=== PATIENT | male | born 1945 | race Caucasian/White ===

== ENCOUNTER 2017-02-20 08:38 | Emergency (ER) | payer MEDICARE ==
--- NOTE | 2017-02-20 09:17 | ED ---
General Adult HPI - General Chief complaint: Recheck/Abnormal Lab/Rx Stated complaint: Chest Pain Time Seen by Provider: 02/20/17 08:50 Source: patient, family, RN notes reviewed Mode of arrival: ambulatory Limitations: no limitations - History of Present Illness Initial comments: This is a 82-year-old male with a history of A. fib status post ablation who states he's been off her Rythmol since February 16 of this year who states he woke up feeling cold with an irregular heartbeat. He is also some shortness of breath shaking some lightheadedness. He also has been having urinary frequency though he has recently been placed on Flomax. He also states he was diagnosed with been diabetic about a month ago and is on new medications for this. He denies any overt chest pain no increased lower extremity edema. - Related Data Home Medications Medication Instructions Recorded Confirmed Allopurinol [Zyloprim] 300 mg PO DAILY 08/09/15 02/20/17 Colchicine 0.6 mg PO BID PRN 08/09/15 02/20/17 Propafenone [Rythmol] 225 mg PO TID 08/09/15 02/20/17 Atorvastatin Calcium [Lipitor] 10 mg PO DAILY 02/20/17 02/20/17 Losartan [Cozaar] 50 mg PO DAILY 02/20/17 02/20/17 Sulfamethox-Tmp 800-160Mg [Bactrim 1 tab PO Q12H 02/20/17 02/20/17 DS 800-160 mg] Tamsulosin [Flomax] 0.4 mg PO PC-SUPPER 02/20/17 02/20/17 Warfarin [Coumadin] 2.5 mg PO SUMOTUTHFRSA 02/20/17 02/20/17 Warfarin [Coumadin] 5 mg PO WE 02/20/17 02/20/17 metFORMIN HCL 1,000 mg PO AC-BID 02/20/17 02/20/17 Previous Rx's Medication Instructions Recorded Magnesium 200 mg PO DAILY #14 tablet 02/20/17 Allergies Allergy/AdvReac Type Severity Reaction Status Date / Time quinidine Allergy Anaphylaxis Verified 02/20/17 09:59 Review of Systems ROS Statement: Those systems with pertinent positive or pertinent negative responses have been documented in the HPI. ROS Other: All systems not noted in ROS Statement are negative. Past Medical History Past Medical History: Atrial Fibrillation, CVA/TIA, Hyperlipidemia, Hypertension , Sleep Apnea/CPAP/BIPAP Additional Past Medical History / Comment(s): SKIN LESION ON RT CHEST, GOUT History of Any Multi-Drug Resistant Organisms: None Reported Past Surgical History: Ablation, Cardiac Ablation, Orthopedic Surgery, Tonsillectomy Additional Past Surgical History / Comment(s): FOOT SX, EPIDURAL FOR PAIN, CARDIAC ABLATION 1997ISH Past Anesthesia/Blood Transfusion Reactions: No Reported Reaction Past Psychological History: No Psychological Hx Reported Smoking Status: Former smoker Past Alcohol Use History: None Reported Past Drug Use History: None Reported General Exam - General Exam Comments Initial Comments: This is a well-developed well-nourished awake alert oriented 3 male Limitations: no limitations General appearance: alert, in no apparent distress Head exam: Present: atraumatic, normocephalic, normal inspection Eye exam: Present: normal appearance, PERRL, EOMI. Absent: scleral icterus, conjunctival injection, periorbital swelling ENT exam: Present: normal exam, mucous membranes moist Neck exam: Present: normal inspection. Absent: tenderness, meningismus, lymphadenopathy Respiratory exam: Present: normal lung sounds bilaterally. Absent: respiratory distress, wheezes, rales, rhonchi, stridor Cardiovascular Exam: Present: tachycardia, irregular rhythm. Absent: systolic murmur, diastolic murmur, rubs, gallop, clicks GI/Abdominal exam: Present: soft, normal bowel sounds. Absent: distended, tenderness, guarding, rebound, rigid Extremities exam: Present: normal inspection, full ROM, normal capillary refill , pedal edema, other (Trace edema with stasis dermatitis bilaterally.). Absent : tenderness, joint swelling, calf tenderness Back exam: Present: normal inspection Neurological exam: Present: alert, oriented X3, CN II-XII intact Psychiatric exam: Present: normal affect, normal mood Skin exam: Present: warm, dry, intact, normal color. Absent: rash Course Vital Signs 02/20/17 02/20/17 02/20/17 08:40 09:04 10:11 Temperature 98.8 F 97.3 F L 97.8 F Pulse Rate 107 H 115 H 112 H Respiratory 18 16 16 Rate Blood Pressure 120/78 135/106 135/106 O2 Sat by Pulse 98 97 96 Oximetry 02/20/17 02/20/17 10:56 11:46 Temperature Pulse Rate 78 85 Respiratory 18 16 Rate Blood Pressure 135/106 127/60 O2 Sat by Pulse 97 98 Oximetry - Reevaluation(s) Reevaluation #1: 02/20/17 12:40 The patient is spontaneously convert to normal sinus rhythm the rate was 65 ME 180 QRS 88 QT/QTC 366/3 left exodeviation no acute ST-T wave changes. Reevaluation #2: 02/20/17 12:41 The patient continues to be in normal sinus rhythm he will be discharged after the IV magnesium. Reevaluation #3: 02/20/17 12:42 I did review the lab work. The INR was 1.8. EKG Findings - EKG Results: EKG: interpreted by [facility] Medical Decision Making - Medical Decision Making I did a long discussion with patient has regarding the findings patient did convert to normal sinus rhythm his magnesium was 1.6 he did get supplementation the patient will be placed on any symptoms supplementation he is also to increase his Coumadin as directed he is to keep his follow-up with cardiology and return when necessary - Lab Data Result diagrams: 02/20/17 09:24 02/20/17 09:24 Lab Results 02/20/17 02/20/17 02/20/17 Range/Units 09:24 09:24 09:24 WBC 5.5 (3.8-10.6) k/uL RBC 4.65 (4.30-5.90) m/uL Hgb 15.0 (13.0-17.5) gm/dL Hct 42.9 (39.0-53.0) % MCV 92.2 (80.0-100.0) fL MCH 32.2 (25.0-35.0) pg MCHC 34.9 (31.0-37.0) g/dL RDW 14.2 (11.5-15.5) % Plt Count 127 L (150-450) k/uL Neutrophils % 69 % Lymphocytes % 20 % Monocytes % 7 % Eosinophils % 2 % Basophils % 0 % Neutrophils # 3.8 (1.3-7.7) k/uL Lymphocytes # 1.1 (1.0-4.8) k/uL Monocytes # 0.4 (0-1.0) k/uL Eosinophils # 0.1 (0-0.7) k/uL Basophils # 0.0 (0-0.2) k/uL PT (9.0-12.0) sec INR (<1.1) APTT (22.0-30.0) sec Sodium 141 (137-145) mmol/L Potassium 4.0 (3.5-5.1) mmol/L Chloride 111 H (98-107) mmol/L Carbon Dioxide 19 L (22-30) mmol/L Anion Gap 11 mmol/L BUN 17 (9-20) mg/dL Creatinine 0.75 (0.66-1.25) mg/dL Est GFR (MDRD) Af Amer >60 (>60 ml/min/1.73 sqM) Est GFR (MDRD) Non-Af >60 (>60 ml/min/1.73 sqM) Glucose 106 H (74-99) mg/dL Calcium 8.7 (8.4-10.2) mg/dL Magnesium 1.6 (1.6-2.3) mg/dL Total Bilirubin 0.8 (0.2-1.3) mg/dL AST 25 (17-59) U/L ALT 34 (21-72) U/L Alkaline Phosphatase 64 (38-126) U/L Total Creatine Kinase 53 L (55-170) U/L CK-MB (CK-2) 0.6 (0.0-2.4) ng/mL CK-MB (CK-2) Rel Index 1.1 Troponin I <0.012 (0.000-0.034) ng/mL NT-Pro-B Natriuret Pep pg/mL Total Protein 6.1 L (6.3-8.2) g/dL Albumin 3.5 (3.5-5.0) g/dL TSH 1.950 (0.465-4.680) mIU/L 02/20/17 02/20/17 Range/Units 09:24 09:49 WBC (3.8-10.6) k/uL RBC (4.30-5.90) m/uL Hgb (13.0-17.5) gm/dL Hct (39.0-53.0) % MCV (80.0-100.0) fL MCH (25.0-35.0) pg MCHC (31.0-37.0) g/dL RDW (11.5-15.5) % Plt Count (150-450) k/uL Neutrophils % % Lymphocytes % % Monocytes % % Eosinophils % % Basophils % % Neutrophils # (1.3-7.7) k/uL Lymphocytes # (1.0-4.8) k/uL Monocytes # (0-1.0) k/uL Eosinophils # (0-0.7) k/uL Basophils # (0-0.2) k/uL PT 17.0 H (9.0-12.0) sec INR 1.8 (<1.1) APTT 28.3 (22.0-30.0) sec Sodium (137-145) mmol/L Potassium (3.5-5.1) mmol/L Chloride (98-107) mmol/L Carbon Dioxide (22-30) mmol/L Anion Gap mmol/L BUN (9-20) mg/dL Creatinine (0.66-1.25) mg/dL Est GFR (MDRD) Af Amer (>60 ml/min/1.73 sqM) Est GFR (MDRD) Non-Af (>60 ml/min/1.73 sqM) Glucose (74-99) mg/dL Calcium (8.4-10.2) mg/dL Magnesium (1.6-2.3) mg/dL Total Bilirubin (0.2-1.3) mg/dL AST (17-59) U/L ALT (21-72) U/L Alkaline Phosphatase (38-126) U/L Total Creatine Kinase (55-170) U/L CK-MB (CK-2) (0.0-2.4) ng/mL CK-MB (CK-2) Rel Index Troponin I (0.000-0.034) ng/mL NT-Pro-B Natriuret Pep 291 pg/mL Total Protein (6.3-8.2) g/dL Albumin (3.5-5.0) g/dL TSH (0.465-4.680) mIU/L - Radiology Data Radiology results: report reviewed (Review the imaging shows no acute findings.) , image reviewed Disposition Clinical Impression: Rapid atrial fibrillation, Hypomagnesemia Disposition: HOME SELF-CARE Condition: Good Instructions: Atrial Fibrillation (ED), Hypomagnesemia (ED) Prescriptions: Magnesium 200 mg PO DAILY #14 tablet Referrals: Guillermo Owusu MD [Primary Care Provider] - 1-2 days
[2017-02-20 09:58] LABS: Basophils % (A) 0 %; CH 32.3; CHCM 35.2; Eosinophils # (A) 0.1 k/uL (0-0.7); Eosinophils % (A) 2 %; HCT 42.9 % (39.0-53.0); HDW 3.33; Luc % (Auto) 2; Lymphocytes # (A) 1.1 k/uL (1.0-4.8); Lymphocytes % (A) 20 %; MCH 32.2 pg (25.0-35.0); MCHC 34.9 g/dL (31.0-37.0); MCV 92.2 fL (80.0-100.0); Mean Platelet Volume 9.5; Monocytes # (A) 0.4 k/uL (0-1.0); Monocytes % (A) 7 %; Neutrophils # (A) 3.8 k/uL (1.3-7.7); Neutrophils % (A) 69 %; RBC 4.65 m/uL (4.30-5.90); RDW 14.2 % (11.5-15.5); WBC 5.5 k/uL (3.8-10.6); WBC (Perox) 5.28
[2017-02-20 10:03] LABS: ALT 34 U/L (21-72); AST 25 U/L (17-59); Alkaline Phosphatase 64 U/L (38-126); Anion Gap 11 mmol/L; Blood Urea Nitrogen 17 mg/dL (9-20); Calcium 8.7 mg/dL (8.4-10.2); Carbon Dioxide 19 mmol/L (22-30); Chloride 111 mmol/L (98-107); Glucose 106 mg/dL (74-99); Magnesium 1.6 mg/dL (1.6-2.3); Non-African American GFR(MDRD) >60 (>60 ml/min/1.73 sqM); Sodium 141 mmol/L (137-145); Total Bilirubin 0.8 mg/dL (0.2-1.3); Total Protein 6.1 g/dL (6.3-8.2)
[2017-02-20 10:08] LABS: Creatine Kinase 53 U/L (55-170)
[2017-02-20 10:13] VITALS: TEMP 97.8
--- NOTE | 2017-02-20 10:14 | XR ---
EXAMINATION TYPE: XR chest 2V DATE OF EXAM: 02/20/2017 10:03 AM COMPARISON: Prior chest x-ray 13 December 2013 HISTORY: Irregular heart rate, dysrhythmia TECHNIQUE: Frontal and lateral views of the chest are obtained. FINDINGS: There are overlying cardiac leads and the patient is rotated. There may be spinal curvatur e. No pneumonia, pneumothorax, or pleural effusion is evident. Cardiac mediastinal silhouette, pulmon ranjana vascularity and joshua are not significantly changed. Emphysematous changes are present especially at the apices. IMPRESSION: No acute cardiopulmonary process.
[2017-02-20 10:21] LABS: Creatine Kinase MB 0.6 ng/mL (0.0-2.4); Troponin I <0.012 ng/mL (0.000-0.034)
[2017-02-20 10:31] LABS: INR 1.8 (<1.1); Partial Thromboplastin Time 28.3 sec (22.0-30.0)
[2017-02-20] MEDS ORDERED: MAGNESIUM SULFATE-D5W PMX 1 GM in DEXTROSE/WATER 1 100ML.BAG IVPB ONE (11:15)
[2017-02-20 13:10] VITALS: BP 100/58; PULSE 64; RESP 18
== END 2017-02-20 13:07 | disposition home or self-care (01) ==
LOC: EC 08:38
DX: E83.42 Hypomagnesemia (principal); I48.91 Unspecified atrial fibrillation; R07.9 Chest pain, unspecified; R06.02 Shortness of breath; R42 Dizziness and giddiness; I10 Essential (primary) hypertension; E78.5 Hyperlipidemia, unspecified; Z87.891 Personal history of nicotine dependence; Z79.01 Long term (current) use of anticoagulants; Z79.899 Other long term (current) drug therapy; Z79.84 Long term (current) use of oral hypoglycemic drugs; Z88.8 Allergy status to other drugs, medicaments and biological substances; Z86.73 Personal history of transient ischemic attack (TIA), and cerebral infarction without residual deficits; Z98.890 Other specified postprocedural states
CPT/HCPCS: 99285; 96365; 36415; 93005; 83880; 80053; 82550; 82553; 83735; 84443; 84484; 85025; 85610; 85730; 71020; J3475

== ENCOUNTER → 2017-05-23 | Outpatient (CLI) | payer MEDICARE ==
[2017-05-23 10:38] LABS: Basophils % (A) 1 %; CHCM 33.4; Eosinophils # (A) 0.2 k/uL (0-0.7); Eosinophils % (A) 3 %; HCT 43.8 % (39.0-53.0); HGB 14.1 gm/dL (13.0-17.5); Luc # (Auto) 0.18; Luc % (Auto) 3; Lymphocytes % (A) 19 %; MCH 31.1 pg (25.0-35.0); MCHC 32.2 g/dL (31.0-37.0); MCV 96.7 fL (80.0-100.0); Mean Platelet Volume 10.4; Monocytes # (A) 0.5 k/uL (0-1.0); Monocytes % (A) 9 %; Neutrophils # (A) 3.5 k/uL (1.3-7.7); Neutrophils % (A) 66 %; RBC 4.53 m/uL (4.30-5.90); RDW 15.8 % (11.5-15.5); WBC 5.3 k/uL (3.8-10.6); WBC (Perox) 5.49
[2017-05-23 11:05] LABS: Anion Gap 7 mmol/L; Blood Urea Nitrogen 16 mg/dL (9-20); Carbon Dioxide 27 mmol/L (22-30); Chloride 108 mmol/L (98-107); Glucose 96 mg/dL (74-99); Non-African American GFR(MDRD) >60 (>60 ml/min/1.73 sqM); Potassium 4.5 mmol/L (3.5-5.1); Sodium 142 mmol/L (137-145)
== END | disposition home or self-care (01) ==
LOC: LABWHC1 09:55
PROVIDERS: ATTEND Internal Medicine Clinical Cardiac Electrophysiology
DX: I48.0 Paroxysmal atrial fibrillation (principal)
CPT/HCPCS: 36415; 80048; 85025

== ENCOUNTER 2017-06-05 10:27 | Day surgery (SDC) | payer MEDICARE ==
[2017-05-28 16:08] VITALS: BMI 33.0
[~2017-06-05 10:27] MED LIST: LACTATED RINGERS 1,000 ML IV ONE; SODIUM CHLORIDE 0.9% 1,000 ML IV ONE
[2017-06-05 11:08] LABS: Prothrombin Time 19.5 sec (9.0-12.0)
[2017-06-05 11:10] LABS: Glucose,Whole Blood 105 mg/dL (75-99)
[2017-06-05] MEDS ORDERED: IV FLUID CONTINUATION 1,000 ML IV ONE (11:46)
[2017-06-05] MEDS ORDERED: PROTAMINE SULFATE 10 MG/ML 5 ML VIAL IV ONE (12:28)
[2017-06-05] MEDS ORDERED: SUCCINYLCHOLINE CHLORIDE VIAL 200 MG/10 ML VIAL IV ONE (12:28)
[2017-06-05] MEDS ORDERED: LIDOCAINE 1% INJ 10MG/ML (20 ML MDV) ONE (12:28)
[2017-06-05] MEDS ORDERED: HEPARIN SODIUM 1,000 UN/ML (10ML VL) ONE (12:28)
[2017-06-05] MEDS ORDERED: PROPOFOL 10 MG/ML 20 ML VIAL IV ONE (12:28)
[2017-06-05] MEDS ORDERED: fentaNYL (PF) 50 MCG/ML 2 ML AMP ONE (12:28)
[2017-06-05] MEDS ORDERED: PHENYLEPHRINE-0.9% NACL SYG 1 MG/10 ML SYRINGE ONE (12:28)
[2017-06-05] MEDS ORDERED: HEPARIN SODIUM,PORCINE 5,000 UNIT/ML 1 ML VIAL ONE (12:28)
[2017-06-05] MEDS ORDERED: MIDAZOLAM 2 MG/2 ML VIAL ONE (12:28)
[2017-06-05] MEDS ORDERED: ISOPROTERENOL 200 MCG/ML 5 ML AMP IV ONE (12:28)
[2017-06-05] MEDS ORDERED: LIDOCAINE 2% INJ 20 MG/ML SQ ONE (12:54)
[2017-06-05] MEDS ORDERED: HEPARIN SODIUM,PORCINE/D5W PMX 25,000 UNIT in DEXTROSE/WATER 1 500ML.BAG IV ONE (13:07)
[2017-06-05] MEDS ORDERED: IOHEXOL 350 MG/ML 100 ML BOTTLE INJ ONE (15:12)
[2017-06-05] MEDS ORDERED: LACTATED RINGERS 1,000 ML IV ONE (15:13)
[2017-06-05] MEDS ORDERED: HYDROcodone/APAP 5-325MG 1 EACH TAB PO PRN (15:16)
[2017-06-05] MEDS ORDERED: ACETAMINOPHEN TAB 325 MG TAB PO PRN (15:16)
[2017-06-05] MEDS ORDERED: COLCHICINE 0.6 MG TAB PO PRN (15:18)
[2017-06-05] MEDS ORDERED: ACETAMINOPHEN IV (For NPO) 1,000 MG in EMPTY BAG 1 BAG IVPB ONE (15:30)
--- NOTE | 2017-06-05 15:45 | P.PCN ---
Preoperative Diagnosis: Procedures performed (PVI - CRYO Ablation) Invasive hemodynamic monitoring while general anesthesia, right femoral arterial line for monitoring and sampling Comprehensive diagnostic EP study with attempted arrhythmia induction CS pacing and recording Drug infusion Catheter the mapping of the tachycardia (NOT 3D mapping) Intracardiac echocardiography Pulmonary vein isolation with transseptal and comprehensive EPS, [address] Procedure details Patient was brought to the EP lab in a fasting state. Written informed consent was obtained prior to the procedure. Procedure performed under general anesthesia After initial muscle relaxant use, muscle relaxants were not given thereafter in order to assess phrenic nerve during procedure Patient prepped and draped as per protocol Full cryo-set up with standard preparation of the cryoablation tools done Femoral Venous access obtained on the right and left groins Sheaths placed Diagnostic catheters for the high right atrium, phrenic nerve stimulation and pacing, His bundle, RV and coronary sinus placed Intracardiac echo catheter placed Long sheath placed in the right atrium Left and right transseptal catheterization performed under intracardiac echo guidance Intravenous heparin with aCT above 300 Later, catheter positioning and balloon positioning under intracardiac echo Baseline measurements Sinus cycle length 1019, MA interval 174, QRS 99, QT interval 436 seconds. AH interval 99, HV interval 37 Comprehensive diagnostic EP study with drug infusion Atrial pacing performed from the high right atrium and the coronary sinus Sinus node recovery times at 600, 504 100 ms were 1155 ms, 1280 and 963 ms respectively. AV node Wenckebach block 400 ms RV pacing performed. VA Wenckebach block 520 ms On Isuprel was stimulation from the coronary sinus was performed. No atrial fibrillation was induced In the circular catheter touched the roof of the left atrium a slow atrial tachycardia was induced but it was brief, nonsustained and terminated spontaneously Transseptal catheterization performed RA pressure 13/9/11 LA pressure is 19/5/11 Transseptal catheterization performed with standard sheath. The cryoablation sheath was then placed with an over the wire exchange without any acute complications. All 5 pulmonary veins were isolated in the following sequence: Left superior followed by left inferior followed by right superior, right middle pulmonary vein followed by right inferior The cryo-ablation balloon was placed at the os of each vein 1.5 mL of IV dye was injected to confirm an occluded vein Goal during cryoablation was to achieve -30C in the first 30 seconds. If not the balloon was repositioned to obtain this result After completion of Cryoblation with durations from 180-240 seconds, entrance block was confirmed with the Attain circular catheter in a roving fashion around the antrum of the pulmonary veins Phrenic nerve pacing was performed from the SVC, right innominate vein area and diaphragm voltage was monitored as well as manually Excellent cryoablation parameters were achieved for all veins. Following that entrance block was confirmed in all 5 veins Phrenic nerve remained intact Esophageal temperature went down to 23C when the right middle pulmonary vein was being isolated. 63 seconds of cryoablation was performed. Balloon was repositioned a bit deeper and thereafter there was no esophageal cooling noted All veins showed complete entrance block at the end of the procedure At the end of the procedure the Achieve catheter was once again used to check for entrance block Phrenic nerve stimulation was performed to confirm diaphragmatic stimulation the end of the procedure Cine fluoroscopy was performed at the very end of the procedure to confirm movement of both diaphragms with inspiration and expiration At the end of the procedure the patient was extubated Heparin was reversed Venous sheaths were removed and hemostasis assured Result Successful pulmonary vein isolation of all 5 pulmonary veins using cryo- ablation. Patient had a right superior, large right mid as well as the right inferior pulmonary vein and common os on the left side Complete entrance block in all 4 veins confirmed No evidence for phrenic nerve injury Postoperative Diagnosis: Procedure(s) Performed: Implants: Anesthesia: GETA Condition: stable Disposition: floor Indications for Procedure: Operative Findings: Description of Procedure:
[2017-06-05 16:13] LABS: Glucose,Whole Blood 111 mg/dL (75-99)
[2017-06-05] MEDS ORDERED: WARFARIN 5 MG TAB PO SCH (18:00)
[2017-06-05] MEDS ORDERED: TAMSULOSIN 0.4 MG CAP.ER.24H PO SCH (18:30)
[2017-06-05] MEDS: PROPAFENONE 225 MG TAB PO SCH ×2 (19:13→22:07)
[2017-06-05] MEDS ORDERED: ATORVASTATIN 10 MG TAB PO SCH (21:00)
[2017-06-05] MEDS ORDERED: DULoxetine HCL 60 MG CAPSULE.DR PO SCH (21:00)
[2017-06-06 06:34] LABS: INR 2.3 (<1.2)
--- NOTE | 2017-06-06 07:56 | P.DS ---
Providers Attending physician: Dragan Shook Primary care physician: Guillermo [facility] Course: Patient is doing well. He denies any chest discomfort no dizziness lightheadedness. His throat feels okay. His cause of healed well. No hematoma. Minimal tenderness. He has numbness and tingling in the ring and little finger unilaterally. He has had medications in the past. He's been ambulating in the hallways without any problems Afebrile 97.2F pulse rate in the 80s blood pressure 127/70 mmHg normal pulse ox. Breath sounds equal air entry bilaterally no rhonchi no crackles. Heart sounds S1 and S2 are soft no murmurs no gallops no rub abdomen soft groins have healed well no edema in the lower extremities Impression Paroxysmal symptomatic atrial fibrillation with RVR status post pulmonary vein isolation, cryoablation Atrial flutter status post RF ablation many years back Frequent unifocal PVCs noted on telemetry, asymptomatic Suggest Anticoagulated with Coumadin 5 mg of Coumadin 3 times a week Sunday and 2.5 mg on other days, keep INR between 2.0 and 3.0 Follow-up with Dr. Merida in 1 week and a PT/INR checked that day Reduce Rythmol 150 mg 3 times a day after 6 weeks Discharge home later this afternoon after ablating in the hallways if stable and no bleeding in the groin Patient Condition at Discharge: Stable Plan - Discharge Summary New Discharge Prescriptions: No Action Propafenone [Rythmol] 225 mg PO TID Colchicine 0.6 mg PO BID PRN PRN Reason: GOUT Allopurinol [Zyloprim] 300 mg PO 1200 Atorvastatin Calcium [Lipitor] 10 mg PO HS Warfarin [Coumadin] 5 mg PO SUTH Warfarin [Coumadin] 2.5 mg PO MOTUWEFRSA Tamsulosin [Flomax] 0.4 mg PO PC-SUPPER DULoxetine HCL [Cymbalta] 60 mg PO HS Losartan [Cozaar] 25 mg PO DAILY Magnesium 260 mg PO DAILY Discharge Medication List Allopurinol [Zyloprim] 300 mg PO 1200 08/09/15 [History] Colchicine 0.6 mg PO BID PRN 08/09/15 [History] Propafenone [Rythmol] 225 mg PO TID 08/09/15 [History] Atorvastatin Calcium [Lipitor] 10 mg PO HS 02/20/17 [History] Tamsulosin [Flomax] 0.4 mg PO PC-SUPPER 02/20/17 [History] Warfarin [Coumadin] 2.5 mg PO MOTUWEFRSA 02/20/17 [History] Warfarin [Coumadin] 5 mg PO SUTH 02/20/17 [History] DULoxetine HCL [Cymbalta] 60 mg PO HS 05/28/17 [History] Losartan [Cozaar] 25 mg PO DAILY 05/28/17 [History] Magnesium 260 mg PO DAILY 06/05/17 [History]
[2017-06-06 08:30] VITALS: RESP 16; TEMP 98
[2017-06-06] MEDS: PROPAFENONE 225 MG TAB PO SCH (08:33)
[2017-06-06] MEDS ORDERED: MAGNESIUM OXIDE 400 MG TAB PO SCH (09:00)
[2017-06-06] MEDS ORDERED: LOSARTAN 25 MG TAB PO SCH (09:00)
[2017-06-06 09:39] LABS: Anion Gap 8 mmol/L; Blood Urea Nitrogen 14 mg/dL (9-20); Calcium 8.5 mg/dL (8.4-10.2); Carbon Dioxide 23 mmol/L (22-30); Chloride 109 mmol/L (98-107); Glucose 98 mg/dL (74-99); Magnesium 1.9 mg/dL (1.6-2.3); Non-African American GFR(MDRD) >60 (>60 ml/min/1.73 sqM); Potassium 4.1 mmol/L (3.5-5.1); Sodium 140 mmol/L (137-145)
[2017-06-06] MEDS ORDERED: ALLOPURINOL 300 MG TAB PO SCH (12:00)
[2017-06-06 13:41] VITALS: BP 126/61; PULSE 74
== END 2017-06-06 15:48 | disposition home or self-care (01) ==
LOC: CATHEP 10:27 → 6SEL 15:09 → CATHEP 06-06 15:48
PROVIDERS: ATTEND Internal Medicine Clinical Cardiac Electrophysiology
DX: I48.0 Paroxysmal atrial fibrillation (principal); Z79.01 Long term (current) use of anticoagulants; I49.3 Ventricular premature depolarization; Z82.49 Family history of ischemic heart disease and other diseases of the circulatory system; E11.9 Type 2 diabetes mellitus without complications; Z79.84 Long term (current) use of oral hypoglycemic drugs; M10.9 Gout, unspecified; Z79.899 Other long term (current) drug therapy; Z88.8 Allergy status to other drugs, medicaments and biological substances
CPT/HCPCS: 85347; 93623; 93662; 93609; 93656; 80048; 83735; 85610 ×2; C1769 ×5; C1894 ×3; C1730 ×3; C1759; C1893; C1733; C1766; J2001 ×2; J2250; J0330; J2720; J1644 ×3; Q9967; J3010; J0131; J2370; J2704

== ENCOUNTER → 2018-03-28 | Outpatient (CLI) | payer MEDICARE ==
--- NOTE | 2018-03-28 18:15 | CONS ---
CONSULTATION DATE OF SERVICE: 03/28/2018 This patient is a 73-year-old gentleman who has been re-evaluated in the sleep center for obstructive sleep apnea-hypopnea syndrome. HISTORY OF PRESENT ILLNESS/SLEEP-WAKE EVALUATION: Patient was diagnosed with obstructive sleep apnea-hypopnea syndrome about 10 years ago. At that time, he was started on treatment with CPAP and he has continued to use his CPAP equipment since that time until now. He has had significant changes in his weight since the previous sleep study. His weight increased significantly, up by more than 80 pounds, and then he lost the weight, and at the present time it is about 20 pounds more than when he had the previous sleep study. At the present time, his sleep schedule is from around 11 p.m. until 8 a.m. No problems with falling asleep, although he has a TV set in the bedroom. He is using his equipment every night, and even while using his machine he wakes up with nocturia up to 4 times. During the day he may have episodes of irritability or claustrophobia. [place] Sleepiness Scale is 4. I checked the patient's positive air pressure unit. This is a BiPAP unit. Pressure is 13/10 cm of water with a pressure support of 3. There is some problem with the machine registration; machine does not indicate that it was used recently. PAST MEDICAL HISTORY: 1. Arterial fibrillation. 2. Gout. 3. Hyperlipidemia. 4. BPH. 5. Diabetes mellitus. 6. Discomfort in his legs at night, when he has the urge to move the legs. Mostly discomfort is in his feet. PAST SURGICAL HISTORY: 1. Several cardiac ablations for atrial fibrillation, last one in November of 2017. 2. Tonsillectomy. 3. Left shoulder cyst removed. MEDICATIONS: 1. Allopurinol. 2. Atorvastatin. 3. Warfarin. 4. Flomax. 5. Tylenol. SOCIAL HISTORY: Positive for smoking in the past; quit 11 years ago. Alcohol consumption: None at the present time. REVIEW OF SYSTEMS: Awakenings from sleep with nocturia. FAMILY HISTORY: Hypertension, hyperlipidemia, stroke, arthritis, sleep apnea, pneumonia, diabetes. PHYSICAL EXAMINATION: GENERAL A pleasant 73-year-old gentleman without distress. VITAL SIGNS: BP 135/76, HR 68, RR 16, height 5 feet 11 inches, weight 258, BMI 35.8. Temperature 97.9. Oxygen saturation at room air 95%. HEENT: PERRLA, EOMI. Evaluation of oropharynx showed tongue protrudes midline; moderately low position of soft palate. NECK: Supple. No JVD. Thyroid is not palpable. LUNGS: Clear to percussion and to auscultation. Good air exchange. No wheezing or rhonchi. HEART: S1, S2 regular. No murmurs, gallops or rubs. ABDOMEN: Obese. EXTREMITIES: One plus bilateral ankle edema. IMPRESSION: 1. Obstructive sleep apnea-hypopnea syndrome for more than 10 years. Patient continues to use his positive air pressure equipment every night but has awakenings from sleep with nocturia. Low position of soft palate, obesity, wide neck 18-3/4 inches in circumference. 2. Obesity; body mass index 35.8. 3. History of hypertension. 4. History of diabetes mellitus, type 2. 5. History of atrial fibrillation, status post several ablation procedures. Last time was in November 2017. Since that time, normal sinus rhythm. 6. Hyperlipidemia. 7. Gout. 8. Benign prostatic hypertrophy. 9. Status post tonsillectomy. 10.Status post left shoulder cyst removed. 11.History of discomfort in the feet during the night with the urge to move; possible restless legs syndrome, possible periodic limb movement. PLAN: 1. We will repeat CPAP titration for re-evaluation of effective CPAP pressure at the present time and to check for the possible options with the mask. 2. Patient will continue to use his BiPAP equipment at the present time every night for the whole night. 3. Prescription for all necessary supplies. 4. After titration, the patient should get a new CPAP or, if necessary, BiPAP unit. 5. Losing weight. 6. Sleep hygiene with regular time in bed for at least 8 hours. 7. No driving if feeling any sleepiness. Thank you very much for allowing me to participate in the management of your patient. Sincerely, Dima Faustin MD, PhD, FAASM Diplomat of [employer] [employer] [employer] of [facility] [place] MMODL / JAMILAHN: [id number] /
== END | disposition home or self-care (01) ==
LOC: SLEEP 16:38
PROVIDERS: ATTEND Internal Medicine
DX: G47.33 Obstructive sleep apnea (adult) (pediatric) (principal); E66.9 Obesity, unspecified; E78.5 Hyperlipidemia, unspecified; M10.9 Gout, unspecified; N40.0 Benign prostatic hyperplasia without lower urinary tract symptoms; E11.9 Type 2 diabetes mellitus without complications; Z68.35 Body mass index [BMI] 35.0-35.9, adult; Z90.89 Acquired absence of other organs; Z86.79 Personal history of other diseases of the circulatory system; Z87.891 Personal history of nicotine dependence; Z79.01 Long term (current) use of anticoagulants; Z79.899 Other long term (current) drug therapy
CPT/HCPCS: 99211

== ENCOUNTER → 2018-06-27 | Outpatient (CLI) | payer MEDICARE ==
--- NOTE | 2018-06-27 16:25 | PN ---
PROGRESS NOTE DATE OF SERVICE: 06/27/2018 This patient is a 73-year-old gentleman who has been followed in the sleep center for treatment of obstructive sleep apnea-hypopnea syndrome. Recently patient had CPAP titration and received a new CPAP unit. Today is his first visit with the new CPAP unit. He is able to use his CPAP equipment every night without problems, except he feels that at the beginning when he starts to use the machine, pressure is a little bit too low, but then it goes up and he feels better. [place] Sleepiness Scale today is 4, which is totally normal. Reading from his machine showed 100% usage of the machine more than 4 hours. Average usage is 8 hours and 45 minutes. CPAP pressure is 10 cm of water. Apnea-hypopnea index was less than 1 per hour for the last month, which is absolutely perfect. Leak averages in the range of 46.2, which is slightly higher than I would prefer to see, but again breathing is totally normal with that. MEDICATIONS: 1. Allopurinol. 2. Atorvastatin. 3. Warfarin. 4. Flomax. 5. Tylenol. 6. Metoprolol. PHYSICAL EXAMINATION: GENERAL A pleasant lady in no distress. VITAL SIGNS: BP 121/79, HR 68, RR 16, weight 258.4, temperature 97.5, oxygen saturation at room air 96%. HEENT: PERRLA, EOMI. Evaluation of oropharynx showed tongue protrudes midline; low position of soft palate. NECK: Supple. No JVD. Thyroid is not palpable. LUNGS: Clear to percussion and to auscultation. Good air exchange. No wheezing or rhonchi. HEART: S1, S2 irregularly irregular. ABDOMEN: Obese. EXTREMITIES : One plus ankle edema. DISABILITY LIAISON OFFICER: Awake, alert, and oriented X3. Cranial nerves 2 to 7 intact. There is no fasciculation or atrophy. noted. No focal deficits observed. IMPRESSION: 1. Obstructive sleep apnea-hypopnea syndrome. Patient demonstrated 100% compliance with treatment, benefitting from treatment. Respiration is under full control with CPAP. 2. Moderate periodic limb movements during titration. No symptoms of sleepiness during the day. 3. Atrial fibrillation. 4. Obesity. 5. History of hypertension. 6. Diabetes mellitus, type 2. 7. Hyperlipidemia. 8. Gout. 9. Benign prostatic hypertrophy. 10.Status post tonsillectomy. 11.Status post left shoulder cyst removed. PLAN: 1. Patient will continue to use CPAP equipment every night. 2. I adjusted RAMP to start from 7 cm of water instead of 5 cm of water. Patient tried CPAP and feels better with that. 3. Losing weight. 4. No driving if feeling any sleepiness. 5. We will maintain prescriptions for all necessary CPAP supplies. Thank you very much for allowing me to participate in the management of your patient. Sincerely, Dima Faustin MD, PhD, FAASM Diplomat of [place] [employer] [employer] [facility] [place] MMODL / IJN: [id number] /
== END | disposition home or self-care (01) ==
LOC: SLEEP 14:16
PROVIDERS: ATTEND Internal Medicine
DX: G47.33 Obstructive sleep apnea (adult) (pediatric) (principal); G47.61 Periodic limb movement disorder; I48.91 Unspecified atrial fibrillation; E66.9 Obesity, unspecified; I10 Essential (primary) hypertension; E11.9 Type 2 diabetes mellitus without complications; E78.5 Hyperlipidemia, unspecified; M10.9 Gout, unspecified; N40.0 Benign prostatic hyperplasia without lower urinary tract symptoms; Z90.89 Acquired absence of other organs; Z99.89 Dependence on other enabling machines and devices; Z98.890 Other specified postprocedural states; Z79.01 Long term (current) use of anticoagulants; Z79.899 Other long term (current) drug therapy

== ENCOUNTER 2018-07-08 18:50 | Emergency (ER) | payer MEDICARE ==
[2018-07-08 19:15] VITALS: PULSE 80; RESP 16
--- NOTE | 2018-07-08 21:08 | ED ---
Abdominal Pain HPI - General Source: patient, RN notes reviewed Mode of arrival: ambulatory Limitations: no limitations <Bekah Brito - Last Filed: 07/09/18 00:57> <Pam Bryant - Last Filed: 07/09/18 03:24> - General Chief Complaint: Abdominal Pain Stated Complaint: abd pain Time Seen by Provider: 07/08/18 20:24 - History of Present Illness Initial Comments: This is a 73-year-old male who presents to the emergency department with chief complaint of burning abdominal pain. Patient states that he drove back home from [facility] today. He states he had not eaten anything all day. Patient reports when he returned home he ate rice cake. He states that after eating he developed a burning abdominal pain that extended from the epigastrium to below his belly button. He states that he touched his abdomen and it was tender. While waiting in the waiting room here in the emergency department, the pain went away. He states he "feels silly" now because he is no longer having any pain. Patient does not wish to have a full workup performed. He states he will follow-up with his primary care provider. He denies any fevers or chills, chest pain or shortness of breath, nausea or vomiting, diarrhea or constipation , dysuria or hematuria. Patient states he was recently treated for urinary tract infection and ended course of Bactrim on Sunday. Denies any further urinary symptoms. (Bekah Brito) - Related Data Home Medications Medication Instructions Recorded Confirmed Allopurinol [Zyloprim] 300 mg PO 1200 08/09/15 07/08/18 Atorvastatin Calcium [Lipitor] 10 mg PO HS 02/20/17 07/08/18 Tamsulosin [Flomax] 0.4 mg PO DAILY@1900 02/20/17 07/08/18 Warfarin [Coumadin] 2.5 mg PO MOWEFRSA 02/20/17 07/08/18 Warfarin [Coumadin] 5 mg PO SUTUTH 02/20/17 07/08/18 Allergies Allergy/AdvReac Type Severity Reaction Status Date / Time duloxetine [From Cymbalta] Allergy Unknown Verified 07/08/18 20:36 quinidine Allergy Anaphylaxis Verified 07/08/18 20:36 Review of Systems ROS Other: All systems not noted in ROS Statement are negative. <Bekah Brito M - Last Filed: 07/09/18 00:57> ROS Other: All systems not noted in ROS Statement are negative. <Pam Bryant - Last Filed: 07/09/18 03:24> ROS Statement: Those systems with pertinent positive or pertinent negative responses have been documented in the HPI. Past Medical History Past Medical History: Atrial Fibrillation, CVA/TIA, Hyperlipidemia, Hypertension , Sleep Apnea/CPAP/BIPAP Additional Past Medical History / Comment(s): SKIN LESION ON RT CHEST, GOUT History of Any Multi-Drug Resistant Organisms: None Reported Past Surgical History: Ablation, Cardiac Ablation, Orthopedic Surgery, Tonsillectomy Additional Past Surgical History / Comment(s): FOOT SX, EPIDURAL FOR PAIN, CARDIAC ABLATION 1997ISH Past Anesthesia/Blood Transfusion Reactions: No Reported Reaction Past Psychological History: No Psychological Hx Reported Smoking Status: Former smoker Past Alcohol Use History: None Reported Past Drug Use History: None Reported <Bekah Brito M - Last Filed: 07/09/18 00:57> General Exam Limitations: no limitations <Bekah Brito M - Last Filed: 07/09/18 00:57> <Justin Bryantssica P - Last Filed: 07/09/18 03:24> - General Exam Comments Initial Comments: General: Awake and alert, well-developed; in no apparent distress. Does not appear acutely ill. is at bedside. HEENT: Head atraumatic, normocephalic. Pupils are equal, round and reactive to light. Extraocular movements intact. Oropharynx moist without erythema or exudate. Neck: Supple. Normal ROM. Cardiovascular: Irregularly irregular rhythm. Normal rate. No murmurs, rubs or gallops. Chest symmetrical. Respiratory: Lungs clear to auscultation bilaterally. No wheezes, rales or rhonchi. Normal respiratory effort with no use of accessory muscles. Abdomen: Soft, non-tender, non-distended. No rigidity, rebound or guarding. Normal bowel sounds in all 4 quadrants. Musculoskeletal: Normal ROM, no tenderness bilateral upper and lower extremities. Ambulating normally. Skin: [place], warm and dry without rashes or lesions. Neurological: Alert and oriented x3. CN II-XII grossly intact. Speech is fluent and answers are appropriate. No focal neuro deficits. Psychiatric: Normal mood and affect. No overt signs of depression or anxiety noted. (Bekah Brito) Vital Signs 07/08/18 07/08/18 19:11 21:25 Temperature 98.6 F 98.2 F Pulse Rate 80 80 Respiratory 16 16 Rate Blood Pressure 113/62 117/58 O2 Sat by Pulse 97 97 Oximetry Medical Decision Making <Bekah Brito - Last Filed: 07/09/18 00:57> <Pam Bryant - Last Filed: 07/09/18 03:24> - Medical Decision Making This is a 73-year-old male who presents to the emergency department with chief complaint of burning abdominal pain. Patient reports developing abdominal pain at approximately 4:30 this evening. He describes it as burning and states it feels like he ate hot sauce. While here in the emergency department, the pain has completely resolved. Abdomen is soft and non-tender. Patient does not wish to have a full workup and will follow up with his primary care provider. However, EKG was obtained. EKG reveals atrial fibrillation without evidence for ST segment elevation or depression. Patient does see a cuff matcher for atrial fibrillation, recently underwent ablation in November and is on a blood thinner. Denies shortness of breath or chest pain. He states he will follow up with his primary care provider in the morning. Vitals are stable and patient is in no acute distress. He will be discharged home at this time. All questions answered. Case discussed and EKG reviewed with attending physician, Dr. Bryant. (Bekah Brito) I was available for consultation in the emergency department. The history and physical exam were done by the midlevel provider. I was consulted for this patient's care. I reviewed the case with the midlevel provider and based on their presentation of the patient, I agree with the assessment, medical decision making and plan of care as documented. (Pam Bryant) - EKG Data EKG Comments: Time: 12:20. Atrial fibrillation. Left axis deviation. Ventricular rate 72 bpm, QRS duration 96, QT/QTC 388/424. (Bekah Brito) Disposition Is patient prescribed a controlled substance at d/c from ED?: No Time of Disposition: 21:18 <Bekah Brito - Last Filed: 07/09/18 00:57> <Pam Bryant - Last Filed: 07/09/18 03:24> Clinical Impression: Normal exam Disposition: HOME SELF-CARE Condition: Good Instructions: Acute Abdominal Pain (ED) Additional Instructions: Please follow up with primary care provider within 1-2 days. Return to emergency department if symptoms should worsen or any concerns arise. Referrals: Guillermo Owusu MD [Primary Care Provider] - 1-2 days
[2018-07-08 21:30] VITALS: BP 117/58; TEMP 98.2
== END 2018-07-08 21:25 | disposition home or self-care (01) ==
LOC: EC 18:50
DX: Z00.00 Encounter for general adult medical examination without abnormal findings (principal); I48.91 Unspecified atrial fibrillation; E78.5 Hyperlipidemia, unspecified; I10 Essential (primary) hypertension; M10.9 Gout, unspecified; G47.30 Sleep apnea, unspecified; Z87.891 Personal history of nicotine dependence; Z88.8 Allergy status to other drugs, medicaments and biological substances; Z79.01 Long term (current) use of anticoagulants; Z79.899 Other long term (current) drug therapy; Z86.73 Personal history of transient ischemic attack (TIA), and cerebral infarction without residual deficits; Z98.890 Other specified postprocedural states
CPT/HCPCS: 93005; 99284

== ENCOUNTER → 2018-09-12 | Outpatient (CLI) | payer MEDICARE ==
--- NOTE | 2018-09-12 14:22 | US ---
EXAMINATION TYPE: US kidneys/renal and bladder DATE OF EXAM: 09/12/2018 COMPARISON: CT chest and abdomen November 08, 2011. MRI lumbar spine January 10, 2012 CLINICAL HISTORY: R31.1 HEMATURIA,N39.0 UTI. EXAM MEASUREMENTS: Right Kidney: 10.7 x 4.3 x 4.5 cm Left Kidney: 10.5 x 4.9 x 6.1 cm Right Kidney: No hydronephrosis or masses seen Left Kidney: two cysts seen, one lower pole measures 2.4 x 2.1 x 2.4 cm and one upper pole measures 2 .7 x 2.5 x 2.7 cm. Bladder: stones seen rt side of bladder floor. Bilateral Jets seen: Yes Prominent prostate noted. There is no evidence for hydronephrosis at this point in time. No nephrolithiasis is seen. No suspi cious new solid or cystic masses are identified. The urinary bladder is satisfactorily distended. Bu lging prostate gland is noted Bilateral ureteral jets are seen. IMPRESSION: Intraluminal calculi in the bladder are felt present. Probable underlying BPH, correlate clinically. A few simple appearing cysts in the left kidney are redemonstrated.
== END | disposition home or self-care (01) ==
LOC: RADUSWWP 13:29
PROVIDERS: ATTEND Urology
DX: N21.0 Calculus in bladder (principal); N39.0 Urinary tract infection, site not specified
CPT/HCPCS: 76770

== ENCOUNTER 2018-10-11 19:50 | Emergency (ER) | payer MEDICARE ==
[2018-10-11 21:20] VITALS: RESP 18; TEMP 98.2
--- NOTE | 2018-10-11 21:34 | ED ---
Male Urogenital HPI - General Chief complaint: Urogenital Stated complaint: Post surgery problems, needs catheter Time Seen by Provider: 10/11/18 20:37 Source: patient, RN notes reviewed, old records reviewed Mode of arrival: wheelchair Limitations: no limitations - History of Present Illness Initial comments: This is a 73-year-old male the ER for evaluation. This patient does say for evaluation I for catheter problem. Patient just a urology procedure earlier in the day, patient comes in for urinary retention tonight. Hematuria. Patient stated he was trying to drink a lot of water and then eventually stopped urinating. Severe abdominal pain suddenly developed afterwards which persisted into ER arrival tonight -: hour(s) Location: abdomen Severity: severe Severity scale (1-10): 10 Quality: aching, sharp Consistency: constant Improves with: none Worsens with: none Reports: blood in urine - Related Data Home Medications Medication Instructions Recorded Confirmed Allopurinol [Zyloprim] 300 mg PO DAILY 08/09/15 10/11/18 Atorvastatin Calcium [Lipitor] 10 mg PO HS 02/20/17 10/11/18 Tamsulosin [Flomax] 0.8 mg PO HS 02/20/17 10/11/18 Warfarin [Coumadin] 2.5 mg PO MOWEFRSA 02/20/17 10/11/18 Warfarin [Coumadin] 5 mg PO SUTUTH 02/20/17 10/11/18 Acetaminophen Tab [Tylenol Tab] 1,000 mg PO Q6H PRN 10/11/18 10/11/18 Metoprolol Tartrate [Lopressor] 50 mg PO DAILY 10/11/18 10/11/18 Sulfamethox-Tmp 800-160Mg [Bactrim 1 tab PO BID 10/11/18 10/11/18 DS 800-160 mg] Allergies Allergy/AdvReac Type Severity Reaction Status Date / Time duloxetine [From Cymbalta] Allergy Unknown Verified 10/11/18 20:55 quinidine Allergy Anaphylaxis Verified 10/11/18 20:55 Review of Systems ROS Statement: Those systems with pertinent positive or pertinent negative responses have been documented in the HPI. ROS Other: All systems not noted in ROS Statement are negative. Past Medical History Past Medical History: Atrial Fibrillation, CVA/TIA, Hyperlipidemia, Hypertension , Sleep Apnea/CPAP/BIPAP Additional Past Medical History / Comment(s): SKIN LESION ON RT CHEST, GOUT History of Any Multi-Drug Resistant Organisms: None Reported Past Surgical History: Ablation, Cardiac Ablation, Orthopedic Surgery, Tonsillectomy Additional Past Surgical History / Comment(s): FOOT SX, EPIDURAL FOR PAIN, CARDIAC ABLATION 1997ISH Past Anesthesia/Blood Transfusion Reactions: No Reported Reaction Past Psychological History: No Psychological Hx Reported Smoking Status: Former smoker Past Alcohol Use History: None Reported Past Drug Use History: None Reported General Exam Limitations: no limitations General appearance: alert, in no apparent distress, anxious Head exam: Present: atraumatic, normocephalic, normal inspection Eye exam: Present: normal appearance, PERRL, EOMI. Absent: scleral icterus, conjunctival injection, periorbital swelling ENT exam: Present: normal exam, mucous membranes moist Neck exam: Present: normal inspection. Absent: tenderness, meningismus, lymphadenopathy Respiratory exam: Present: normal lung sounds bilaterally. Absent: respiratory distress, wheezes, rales, rhonchi, stridor Cardiovascular Exam: Present: regular rate, normal rhythm, normal heart sounds. Absent: systolic murmur, diastolic murmur, rubs, gallop, clicks GI/Abdominal exam: Present: distended, tenderness, guarding, normal bowel sounds. Absent: rebound, rigid Extremities exam: Present: normal inspection, full ROM, normal capillary refill. Absent: tenderness, pedal edema, joint swelling, calf tenderness Back exam: Present: normal inspection Neurological exam: Present: alert, oriented X3, CN II-XII intact Psychiatric exam: Present: normal affect, normal mood Skin exam: Present: warm, dry, intact, normal color. Absent: rash Course Vital Signs 10/11/18 10/11/18 20:18 20:48 Temperature 97.8 F 98.2 F Pulse Rate 86 77 Respiratory 21 18 Rate Blood Pressure 164/119 115/69 O2 Sat by Pulse 97 97 Oximetry - Reevaluation(s) Reevaluation #1: 10/11/18 21:57 Patient is immediate pain relief upon Hill placement Medical Decision Making - Medical Decision Making 73 male the ER for evaluation, acute urinary retention with hematuria. Patient will be sent home on hill with leg bag Disposition Clinical Impression: Urinary retention, Hematuria Disposition: HOME SELF-CARE Condition: Good Instructions: Hematuria (ED) Is patient prescribed a controlled substance at d/c from ED?: No Referrals: Guillermo Owusu MD [Primary Care Provider] - 1-2 days
[2018-10-11 21:59] VITALS: BP 123/90; PULSE 70
== END 2018-10-11 21:59 | disposition home or self-care (01) ==
LOC: EC 19:50
DX: R33.9 Retention of urine, unspecified (principal); R31.9 Hematuria, unspecified; R14.0 Abdominal distension (gaseous); R10.9 Unspecified abdominal pain; I48.91 Unspecified atrial fibrillation; E78.5 Hyperlipidemia, unspecified; I10 Essential (primary) hypertension; M10.9 Gout, unspecified; G47.30 Sleep apnea, unspecified; Z87.891 Personal history of nicotine dependence; Z88.8 Allergy status to other drugs, medicaments and biological substances; Z79.01 Long term (current) use of anticoagulants; Z79.899 Other long term (current) drug therapy; Z99.89 Dependence on other enabling machines and devices; Z86.73 Personal history of transient ischemic attack (TIA), and cerebral infarction without residual deficits; Z98.890 Other specified postprocedural states
CPT/HCPCS: 51702; 99283

== ENCOUNTER → 2019-07-02 | Outpatient (CLI) | payer MEDICARE ==
--- NOTE | 2019-07-02 12:41 | SFUN ---
SLEEP CENTER FOLLOW UP NOTE DATE OF SERVICE: 07/02/2019 This 74-year-old gentleman who has been followed in sleep center for treatment of obstructive sleep apnea-hypopnea syndrome. The patient continued to use his CPAP equipment every night for the whole night. No snoring with the machine. O'Brien Sleepiness Scale today is 4, which is totally normal. I checked his CPAP unit. CPAP pressure is 10 cm of water. Usage is 30 out of 30 nights for more than 4 hours with average usage is 9.1 hours per night. Leak is quite high 49 L/minute. Apnea-hypopnea index at the same time totally normal 0.9. MEDICATIONS: Atorvastatin, allopurinol, warfarin, Flomax, Tylenol, metoprolol. PHYSICAL EXAMINATION: During physical exam, patient in no distress. VITAL SIGNS: BP 106/67, HR 75, RR 16, height 5 feet 10-1/2 inches, weight 266.6, which is about 8 pounds more than during the last visit; temperature 97.9, oxygen saturation on room air 96%. HEENT: PERRLA, EOMI. Oropharynx extremely low soft palate, Mallampati 4. NECK: Supple, no JVD. Thyroid is not palpable. LUNGS: Clear to percussion and to auscultation. Good air exchange. No wheezing or rhonchi. HEART: S1, S2 irregularly irregular. ABDOMEN: Soft and nontender. Bowel sounds are present. No organomegaly appreciated. EXTREMITIES: No clubbing or cyanosis. ECONOMICS INSTRUCTOR: Awake, alert, and oriented X3. Cranial nerves 2 to 7 intact. There is no fasciculation or atrophy. noted. No focal deficits observed. IMPRESSION: 1. Obstructive sleep apnea-hypopnea syndrome. The patient demonstrated 100% compliance with treatment benefitting from treatment. 2. Significant leak according to reading from the machine. 3. Atrial fibrillation. 4. Asthma. 5. Obesity. 6. Hypertension. 7. Diabetes mellitus type 2. 8. Hyperlipidemia. 9. Gout. 10.Benign prostatic hypertrophy. 11.Status post tonsillectomy. 12.Status post left shoulder cyst removed. 13.Status post recent kidney stone removed. PLAN: 1. Patient will continue to use CPAP equipment every night for the whole night with the same level. 2. Losing weight. 3. Prescription for all CPAP supplies including nasal pillow mask. Patient using Mckenna FX, large size, tube filters. 4. Prescription for chin strap to prevent leak. 5. No driving if feeling sleepiness. 6. Follow-up visit in 1 year or earlier if patient has any problems. Thank you very much for allowing me to participate in management of your patient. Sincerely, Dima Faustin MD, PhD, FAASM Diplomat of [place] [employer] [employer] Account Consultant of [facility] [place] MMODL / JAMILAHN: [id number] /
== END | disposition home or self-care (01) ==
LOC: SLEEP 11:42
PROVIDERS: ATTEND Internal Medicine
DX: G47.33 Obstructive sleep apnea (adult) (pediatric) (principal); I48.91 Unspecified atrial fibrillation; J45.909 Unspecified asthma, uncomplicated; E66.9 Obesity, unspecified; I10 Essential (primary) hypertension; E11.9 Type 2 diabetes mellitus without complications; E78.5 Hyperlipidemia, unspecified; M10.9 Gout, unspecified; N40.0 Benign prostatic hyperplasia without lower urinary tract symptoms; Z98.890 Other specified postprocedural states; Z99.89 Dependence on other enabling machines and devices

== ENCOUNTER 2019-11-20 11:46 | Day surgery (SDC) | payer MEDICARE ==
[2019-11-18 10:05] VITALS: BMI 35.2
[~2019-11-20 11:46] MED LIST changes: -LACTATED RINGERS 1,000 ML IV ONE; +LACTATED RINGERS 1,000 ML IV SCH; +LIDOCAINE 1% 20 ML VIAL (10MG/ML) FOR IV START INTRADERMA PRN; -SODIUM CHLORIDE 0.9% 1,000 ML IV ONE
[2019-11-20 12:05] VITALS: TEMP 97.1
[2019-11-20 12:18] LABS: Glucose,Whole Blood 114 mg/dL (75-99)
[2019-11-20] MEDS ORDERED: PROPOFOL 10 MG/ML 20 ML VIAL IV ONE (13:46)
[2019-11-20] MEDS ORDERED: LIDOCAINE 1% INJ 10MG/ML (20 ML MDV) ONE (13:46)
--- NOTE | 2019-11-20 14:09 | P.OP ---
Date of Procedure: 11/20/19 Preoperative Diagnosis: Screening Postoperative Diagnosis: Normal colon Internal hemorrhoids Procedure(s) Performed: Colonoscopy Surgeon: Fallon Azul Pathology: none sent Condition: stable Disposition: same day Indications for Procedure: 74-year-old male presents for screening colonoscopy. Risks, benefits and alternatives were provided to the patient. The patient did provide consent prior to attending the endoscopy suite. Operative Findings: Overall, normal colon Internal hemorrhoids Description of Procedure: The patient was brought into the endoscopy suite and placed in left lateral decubitus position and adequate sedation was achieved using conscious sedation. A digital rectal exam was performed and mild internal hemorrhoids were palpated. An endoscope was in place in the rectum and advanced to the level of the cecum as identified by landmarks including the appendiceal orifice and the ileocecal valve. The prep was good. The colonoscope was then slowly withdrawn, examining for any mucosal abnormalities. The cecum, ascending, transverse, descending and sigmoid colon were visualized adequately. There were no large neoplastic lesions noted throughout the colon. There were no obvious polyps noted throughout the colon. There was no evidence of diverticulosis. Retroflex was performed in the rectum and mild internal hemorrhoids were visible. Excess air was removed, the colonoscope withdrawn and the procedure terminated. The patient was then transferred to the recovery unit in stable condition. Due to the patient's age, repeat colonoscopy should be based on symptoms.
[2019-11-20 14:34] VITALS: BP 113/70; PULSE 59; RESP 14
== END 2019-11-20 14:55 | disposition home or self-care (01) ==
LOC: ORWHC2ENDO 11:46
PROVIDERS: ATTEND Surgery
DX: Z12.11 Encounter for screening for malignant neoplasm of colon (principal); K64.8 Other hemorrhoids; Z86.010 Personal history of colon polyps; I48.91 Unspecified atrial fibrillation; M19.90 Unspecified osteoarthritis, unspecified site; E11.9 Type 2 diabetes mellitus without complications; E78.00 Pure hypercholesterolemia, unspecified; N42.9 Disorder of prostate, unspecified; M10.9 Gout, unspecified; K57.90 Diverticulosis of intestine, part unspecified, without perforation or abscess without bleeding; I10 Essential (primary) hypertension; G47.33 Obstructive sleep apnea (adult) (pediatric); Z86.2 Personal history of diseases of the blood and blood-forming organs and certain disorders involving the immune mechanism; Z85.828 Personal history of other malignant neoplasm of skin; Z86.73 Personal history of transient ischemic attack (TIA), and cerebral infarction without residual deficits; Z98.890 Other specified postprocedural states; Z90.89 Acquired absence of other organs; Z87.891 Personal history of nicotine dependence; Z79.01 Long term (current) use of anticoagulants; Z79.899 Other long term (current) drug therapy; Z79.2 Long term (current) use of antibiotics; Z88.8 Allergy status to other drugs, medicaments and biological substances; Z82.49 Family history of ischemic heart disease and other diseases of the circulatory system; Z82.3 Family history of stroke; Z83.3 Family history of diabetes mellitus
CPT/HCPCS: J2001; J2704; G0105; 45378

== ENCOUNTER → 2020-05-25 | Outpatient (CLI) | payer MEDICARE ==
[2020-05-25 12:52] LABS: HCT 45.8 % (39.0-53.0); HGB 14.7 gm/dL (13.0-17.5); MCH 30.6 pg (25.0-35.0); MCHC 32.1 g/dL (31.0-37.0); MCV 95.5 fL (80.0-100.0); Mean Platelet Volume 9.8; Platelet Count 144 k/uL (150-450); RDW 14.6 % (11.5-15.5); WBC 8.5 k/uL (3.8-10.6)
[2020-05-25 13:26] LABS: Potassium 4.8 mmol/L (3.5-5.1)
== END | disposition home or self-care (01) ==
LOC: LABPAT 10:58
PROVIDERS: ATTEND Internal Medicine Interventional Cardiology
DX: Z01.818 Encounter for other preprocedural examination (principal); I48.21 Permanent atrial fibrillation
CPT/HCPCS: 36415; 80051; 82565; 84520; 85027

== ENCOUNTER → 2020-05-31 | Day surgery (SDC) | payer MEDICARE ==
[2020-05-26 13:41] VITALS: BMI 34.2
[~2020-05-31] MED LIST changes: +ALPRAZolam 0.25 MG TAB PO PRN; +ALPRAZolam 0.5 MG TAB PO PRN; +ASPIRIN 325 MG TAB PO STA; +ATORVASTATIN 80 MG TAB PO STA; +ENOXAPARIN 100 MG/ML SYRINGE SQ STA; +HEPARIN SODIUM 1,000 UN/ML (10ML VL) ONE; +IOPAMIDOL-370 125ML BTL INJ ONE; -LACTATED RINGERS 1,000 ML IV SCH; -LIDOCAINE 1% 20 ML VIAL (10MG/ML) FOR IV START INTRADERMA PRN; +LIDOCAINE 1% INJ 10MG/ML (20 ML MDV) ONE; +LIDOCAINE 1% INJ 10MG/ML (20 ML MDV) SQ ONE; +MIDAZOLAM 2 MG/2 ML VIAL IVP ONE; +NITROGLYCERIN SL TABS 0.4 MG TAB SUBLINGUAL PRN; +SODIUM CHLORIDE 0.9% 1,000 ML IV SCH; +SODIUM CHLORIDE 0.9% 1,000 ML in EMPTY BAG 1 BAG IV ONE; +VERAPAMIL 2.5 MG/ML 2 ML AMP ONE; +VERAPAMIL SYRINGE (5 MG/10 ML) INTRAARTER ONE
[2020-05-31 10:03] VITALS: RESP 16; TEMP 98.1
[2020-05-31 10:37] LABS: INR 1.5 (<1.2); Prothrombin Time 14.7 sec (9.0-12.0)
[2020-05-31 11:11] LABS: Glucose,Whole Blood 107 mg/dL (75-99)
--- NOTE | 2020-05-31 12:35 | CC ---
CARDIAC CATHETERIZATION REPORT DATE OF SERVICE: 05/31/2020 PROCEDURE: Left heart catheterization and coronary angiography. PERFORMED BY: Dr. Devora Merida. Moderate conscious sedation time was 13 minutes. The patient was administered Versed. Oxygen saturation, hemodynamics and EKG were monitored closely. CLINICAL INFORMATION: Mr. Hernesto Crandall is a 75-year-old, obese gentleman, history of chronic atrial fibrillation and also previous episodes of flutter for which he had an ablation. He also has underlying borderline hypertension. He has been having increasing symptoms of angina. Therefore, he was advised cardiac catheterization after due discussion regarding risks, benefits, and options. PROCEDURE NOTE: Under local anesthesia and strict aseptic precautions, a 6-British introducer was placed in the right radial artery. A 3.5 left and 4.0 right Madie catheters were used to perform coronary angiography and the same right catheter was used to check LV pressures. LV gram was not performed. The sheath was taken out and a large TR band applied as per protocol. Saturation the fingers of the right hand was 96%. There were no complications. Patient tolerated procedure well. CARDIAC CATHETERIZATION FINDINGS: The left end-diastolic pressure was about 6-7 mmHg without any gradient across aortic valve. CORONARY ANGIOGRAPHY FINDINGS: RIGHT CORONARY ARTERY: A small nondominant vessel with limited flow. No significant disease, minor irregularities noted. LEFT MAIN CORONARY ARTERY: A short vessel immediately bifurcates into LAD and circumflex. No significant disease. LEFT ANTERIOR DESCENDING CORONARY ARTERY: Good caliber vessel, extends along the anterior wall, gives off small septal and a major diagonal branch in the midportion and the LAD then continues all the way towards the apex. Flow is sluggish. No significant disease noted. The distal 1/3 of the LAD has diffuse disease but no significant obstruction noted. There is no lateral tapering of the vessel noted. LEFT POSTERIOR CIRCUMFLEX CORONARY: Technically, this is a dominant vessel, gives off an obtuse marginal branch proximally and then the PDA and PLV distally. Good caliber vessel, minor irregularities, sluggish flow, no significant obstructive disease. LEFT VENTRICULOGRAM: This was not performed. FINAL IMPRESSION: This patient has a left dominant system., no significant obstructive CAD, sluggish flow, diffuse distal 1/3 of the LAD has disease but no critical stenosis but there is diffuse disease in the distal 1/3 of the LAD. Normal filling pressures and no gradient across the aortic valve. RECOMMENDATIONS: Findings were reviewed with the patient and his family. I am recommending continued medical therapy with risk factor modification. No intervention is necessary. I will give Lovenox 90 mg subcu today and resume his Coumadin this evening. I will see him in the office in one week. Continued medical therapy with risk factor modification is advised. I am recommending echocardiogram to be performed today. MMODL / IJN: [id number] /
[2020-05-31 16:57] VITALS: BP 98/68; PULSE 60
--- NOTE | 2020-06-01 12:37 | ECHOF ---
Referral Reason:LV function MEASUREMENTS -------- HEIGHT: 185.4 cm WEIGHT: 122.5 kg BP: RVIDd: 4.4 cm (< 3.3) IVSd: 1.3 cm (0.6 - 1.1) LVIDd: 4.5 cm (3.9 - 5.3) LVPWd: 1.6 cm (0.6 - 1.1) IVSs: 1.8 cm LVIDs: 3.3 cm LVPWs: 2.0 cm LAESV Index (A-L): 31.94 ml/m Ao Diam: 3.1 cm (2.0 - 3.7) AV Cusp: 2.3 cm (1.5 - 2.6) MV EXCURSION: 19.913 mm (> 18.000) MV EF SLOPE: 90 mm/s (70 - 150) EPSS: 0.9 cm RAP: 5.00 mmHg RVSP: 45.50 mmHg FINDINGS -------- This was a technically adequate study. The left ventricular size is normal. There is mild concentric left ventricular hypertrophy. Overa ll left ventricular systolic function is moderately impaired with, an EF between 35 - 40 %. The right ventricle is moderately enlarged. LA is midly dilated 29-33ml/m2. The right atrium is mildly enlarged. Interatrial and interventricular septum intact. The aortic valve is trileaflet and appears structurally normal. There is mild aortic valve sclerosi s. There is no evidence of aortic regurgitation. There is no evidence of aortic stenosis. Mild mitral regurgitation is present. Moderate tricuspid regurgitation present. There is moderate pulmonary hypertension. The right saul tricular systolic pressure, as measured by Doppler, is 45.50mmHg. There is no pulmonic regurgitation present. The aortic root size is normal. IVC Not well visulized. There is no pericardial effusion. CONCLUSIONS -------- 1. The left ventricular size is normal. 2. There is mild concentric left ventricular hypertrophy. 3. Overall left ventricular systolic function is moderately impaired with, an EF between 35 - 40 %. 4. The right ventricle is moderately enlarged. 5. LA is midly dilated 29-33ml/m2. 6. The right atrium is mildly enlarged. 7. There is mild aortic valve sclerosis. 8. Mild mitral regurgitation is present. 9. Moderate tricuspid regurgitation present. 10. There is moderate pulmonary hypertension. 11. The right ventricular systolic pressure, as measured by Doppler, is 45.50mmHg. CLERK CARRIER: Catie Mckeon RDCS
== END ==
LOC: CATHCVL 09:38
PROVIDERS: ATTEND Internal Medicine Interventional Cardiology
DX: I25.110 Atherosclerotic heart disease of native coronary artery with unstable angina pectoris (principal); R06.02 Shortness of breath; R07.89 Other chest pain; I08.3 Combined rheumatic disorders of mitral, aortic and tricuspid valves; I27.20 Pulmonary hypertension, unspecified; I48.19 Other persistent atrial fibrillation; I10 Essential (primary) hypertension; E78.00 Pure hypercholesterolemia, unspecified; R60.0 Localized edema; I49.5 Sick sinus syndrome; E11.9 Type 2 diabetes mellitus without complications; E66.9 Obesity, unspecified; Z68.35 Body mass index [BMI] 35.0-35.9, adult; Z86.79 Personal history of other diseases of the circulatory system; Z98.890 Other specified postprocedural states; Z79.01 Long term (current) use of anticoagulants; Z72.0 Tobacco use; Z79.899 Other long term (current) drug therapy; Z88.8 Allergy status to other drugs, medicaments and biological substances; Z82.49 Family history of ischemic heart disease and other diseases of the circulatory system
CPT/HCPCS: 93306; 93458; 85610; C1769; C1894; J2250; J2001; J1650; Q9967

== ENCOUNTER → 2020-06-16 | Outpatient (CLI) | payer MEDICARE ==
[2020-06-16 17:38] LABS: African American GFR (CKD) 67.7 (60.0-200.0); Anion Gap 7.1 mmol/L (4.00-12.00); BUN/Creat Ratio 19.17 Ratio (12.00-20.00); Calcium 8.9 mg/dL (8.7-10.3); Carbon Dioxide 23.9 mmol/L (21.6-31.8); Non-African American GFR(CKD) 58.4 (60.0-200.0); Potassium 4.1 mmol/L (3.5-5.5)
== END | disposition home or self-care (01) ==
LOC: LABWHC1 09:09
PROVIDERS: ATTEND Internal Medicine Interventional Cardiology
DX: I10 Essential (primary) hypertension (principal); I48.91 Unspecified atrial fibrillation; I25.10 Atherosclerotic heart disease of native coronary artery without angina pectoris
CPT/HCPCS: 36415; 80048

== ENCOUNTER → 2021-05-05 | Outpatient (CLI) | payer MEDICARE ==
--- NOTE | 2021-05-05 14:42 | XR ---
EXAMINATION TYPE: XR femur RT DATE OF EXAM: 05/05/2021 CLINICAL HISTORY: Pain. TECHNIQUE: Two views of the right femur are obtained. COMPARISON: None FINDINGS: There is no acute fracture or dislocation seen in the right femur. Moderate axial joint sp eve loss right hip. Moderate tricompartment joint space loss right knee with mild patellofemoral comp artment spurring. Mild arteriovascular soft tissue calcification medially in the right femur. IMPRESSION: As above.
== END | disposition home or self-care (01) ==
LOC: RADXRMAIN 14:07
PROVIDERS: ATTEND Psychiatry & Neurology Neurology
DX: M79.651 Pain in right thigh (principal)

== ENCOUNTER → 2021-06-08 | Outpatient (CLI) | payer MEDICARE ==
--- NOTE | 2021-06-08 19:01 | SFUN ---
SLEEP CENTER FOLLOW UP NOTE DATE OF SERVICE: 06/08/2021 76-year-old gentleman has been followed in Sleep Center for treatment of obstructive sleep apnea-hypopnea syndrome. Patient continued to use his CPAP equipment every night. Recently observed that amount of water in the humidifier staying about the same as he is using CPAP equipment during the night. But no dryness in the nose. He does feel some dryness in the mouth although. He is using AirFit P10 nasal pillow mask. I checked his CPAP unit. Pressure is 10 cm of water. Usage is 27/30 nights for more than 4 hours. Leak is high 41 L/minute. Apnea-hypopnea index only 1.1 which is absolutely perfect. [place] Sleepiness Scale today is 6 which is normal. CURRENT MEDICATIONS: Allopurinol 300 mg once a day, tamsulosin 0.4 mg twice a day, furosemide 40 mg once a day, metoprolol 50 mg once a day, atorvastatin 10 mg once a day, finasteride 5 mg once a day, amitriptyline 25 mg once a day, losartan 25 mg once a day, warfarin. PHYSICAL EXAMINATION: GENERAL: Patient in no distress. BP 110/70, HR 84, RR 15, weight 277, height 5 feet 11- 10/02. Body mass index 38. The patient increased his weight on 11 pounds, temperature 98.1, oxygen saturation at room air 94%. Oropharynx extremely low position of soft palate. NECK: Supple, no JVD. Thyroid is not palpable. LUNGS: Clear to percussion and to auscultation. Good air exchange. No wheezing or rhonchi. HEART: S1, S2 irregular. No murmurs, gallops, or rubs. ABDOMEN: Obese. Soft and nontender. Bowel sounds are present. No organomegaly appreciated. EXTREMITIES: 1+ bilateral ankle edema. CORPORATE SALES MANAGER: Awake, alert, and oriented X3. Cranial nerves 2 to 7 intact. There is no fasciculation or atrophy. noted. No focal deficits observed. IMPRESSION: 1. Obstructive sleep apnea-hypopnea syndrome. Patient demonstrated great compliance with treatment benefitting from treatment. 2. High leak from the indicated by reading from the machine, patient opened his mouth, has dryness in the mouth. 3. Humidity at the level of 4, which is medium which should be sufficient. 4. Atrial fibrillation. 5. Asthma. 6. Obesity. 7. Hypertension. 8. Diabetes mellitus type 2. 9. Hyperlipidemia. 10.Gout. 11.Benign prostatic hypertrophy. 12.Status post tonsillectomy. 13.Status post left shoulder cyst removed. 14.Status post recent kidney stone removed. PLAN: 1. Prescription for all necessary CPAP supplies including additional chinstrap. 2. Patient will continue to use PAP equipment every night for the whole night. 3. Sleep hygiene with regular time in bed for at least 7-1/2 to 8 hours. 4. Precautions related to driving. No driving if feeling sleepiness. 5. I will maintain all necessary prescription for PAP supplies including mask, tube, filters. 6. Watching weight. 7. Follow-up visit in 6 months or earlier if patient has any problems. Thank you very much for allowing me to participate in management of your patient. Sincerely, Dima Faustin MD, PhD, FAASM Diplomat of [employer] Sleep Medicine Board of [place] [employer] Merchandising Professor of [facility] [place] MMODL / IJN: [id number] /
== END ==
LOC: SLEEP 11:15
PROVIDERS: ATTEND Internal Medicine
DX: G47.33 Obstructive sleep apnea (adult) (pediatric) (principal); I48.91 Unspecified atrial fibrillation; J45.909 Unspecified asthma, uncomplicated; E66.9 Obesity, unspecified; I10 Essential (primary) hypertension; E11.9 Type 2 diabetes mellitus without complications; E78.5 Hyperlipidemia, unspecified; M10.9 Gout, unspecified; N40.0 Benign prostatic hyperplasia without lower urinary tract symptoms; Z90.09 Acquired absence of other part of head and neck; Z87.442 Personal history of urinary calculi; Z98.890 Other specified postprocedural states; Z99.89 Dependence on other enabling machines and devices; Z68.38 Body mass index [BMI] 38.0-38.9, adult; Z79.899 Other long term (current) drug therapy; Z87.891 Personal history of nicotine dependence; Z88.8 Allergy status to other drugs, medicaments and biological substances

== ENCOUNTER → 2021-12-14 | Outpatient (CLI) | payer MEDICARE ==
--- NOTE | 2021-12-14 19:46 | SFUN ---
SLEEP CENTER FOLLOW UP NOTE DATE OF SERVICE: 12/14/2021 76-year-old gentleman has been followed in Sleep Center for treatment of obstructive sleep apnea-hypopnea syndrome. Patient continued to use CPAP equipment every night for the whole night getting his CPAP supplies in time. [place] Sleepiness Scale today is 3 which is normal. I checked CPAP unit. CPAP pressure is 10 cm of water, usage 30/30 nights. Average 9.5 hours per night. Leak is 30 L/minute, which is borderline. Apnea-hypopnea index is 1.3 which is normal. CURRENT MEDICATIONS: Allopurinol 300 mg once a day, metoprolol 50 mg once a day, warfarin 5 mg half of the tablet for 5 days and one tablet for 2 days, finasteride 5 mg once a day, tamsulosin 0.4 mg twice a day, atorvastatin 10 mg once a day, amitriptyline 25 mg once a day, losartan 25 mg once a day, Jardiance 25 mg half tablet a day. PHYSICAL EXAMINATION: GENERAL: Patient in no distress. BP 113/72, HR 66, RR 16, weight 268.8 pounds, height 5 feet 11-1/2 inches. The patient lost 9 pounds since previous visit. Temperature 96.4, oxygen saturation at room air 98%. Oropharynx: Extremely low position of soft palate, Mallampati 4. NECK: Supple, no JVD. Thyroid is not palpable. LUNGS: Clear to percussion and to auscultation. Good air exchange. No wheezing or rhonchi. HEART: S1, S2 irregular. No murmurs, gallops, or rubs. ABDOMEN: Obese. Soft and nontender. Bowel sounds are present. No organomegaly appreciated. EXTREMITIES: No clubbing or cyanosis. MILLER HELPER DISTILLERY: Awake, alert, and oriented X3. Cranial nerves 2 to 7 intact. There is no fasciculation or atrophy. noted. No focal deficits observed. IMPRESSION: 1. Obstructive sleep apnea-hypopnea syndrome, patient demonstrated 100% compliance with treatment benefitting from treatment. 2. Atrial fibrillation. 3. Asthma. 4. Obesity. 5. Hypertension. 6. Diabetes mellitus type 2. 7. Hyperlipidemia. 8. Gout. 9. Benign prostatic hypertrophy. 10.Status post tonsillectomy. 11.Status post left shoulder cyst removed. 12.Status post recent kidney stone removed. PLAN: 1. Prescription to replace humidifier chamber, there is indication that it was overheated probably because all water goes away in the morning. 2. Humidifier is at the level of 6. I changed down to 4, teach patient how to adjust humidifier that could be the reason why it is not enough for in the morning in the chamber box. 3. Patient will continue to use PAP equipment every night for the whole night. 4. Sleep hygiene with regular time in bed for at least 7-1/2 to 8 hours. 5. Precautions related to driving. No driving if feeling sleepiness. 6. I will maintain all necessary prescription for PAP supplies including mask, tube, filters. 7. Watching weight. 8. Follow-up visit in 6 months or earlier if patient has any problems. Thank you very much for allowing me to participate in management of your patient. Sincerely, Dima Faustin MD, PhD, FAASM Diplomat of [employer] [employer] Sleep Medicine Board of [employer] Cell Plasterer of [facility] [place] [email or web address] / JAMILAHN: [id number] /
== END ==
LOC: SLEEP 13:42
PROVIDERS: ATTEND Internal Medicine
DX: G47.33 Obstructive sleep apnea (adult) (pediatric) (principal); E66.9 Obesity, unspecified; J45.909 Unspecified asthma, uncomplicated; E11.9 Type 2 diabetes mellitus without complications; I48.91 Unspecified atrial fibrillation; E78.5 Hyperlipidemia, unspecified; I10 Essential (primary) hypertension; Z99.89 Dependence on other enabling machines and devices; M10.9 Gout, unspecified; N40.0 Benign prostatic hyperplasia without lower urinary tract symptoms; Z90.09 Acquired absence of other part of head and neck; Z98.890 Other specified postprocedural states; Z87.442 Personal history of urinary calculi; Z79.01 Long term (current) use of anticoagulants; Z79.84 Long term (current) use of oral hypoglycemic drugs; Z87.891 Personal history of nicotine dependence; Z88.8 Allergy status to other drugs, medicaments and biological substances

== ENCOUNTER → 2022-08-01 | Outpatient (CLI) | payer MEDICARE ==
--- NOTE | 2022-08-01 09:50 | MR ---
EXAMINATION TYPE: MR cervical spine wo con DATE OF EXAM: 08/01/2022 COMPARISON: None HISTORY: Neck pain, sore left shoulder TECHNIQUE: Multiplanar, multisequence images of the cervical spine were acquired without contrast. C2-C3: Degenerative disc disease with facet arthropathy. No foraminal encroachment or canal stenosis. No disc herniation. C3-C4: Disc desiccation and mild degenerative disc disease with hypertrophic change since. Minimal un covertebral joint hypertrophy on the right but no foraminal encroachment, disc herniation or canal st enosis. C4-C5: Disc desiccation and mild degenerative disc disease with hypertrophic change since. Very minim al uncovertebral joint hypertrophy with no canal stenosis or foraminal. No disc herniation. C5-C6: Severe degenerative disc disease with hypertrophic changes since bilateral uncovertebral joint protection. There is moderate bilateral foraminal encroachment greater on the left. No discrete abraham iation or C6-C7: Severe degenerative disc disease with uncovertebral joint hypertrophy. Broad-based disc bulgin g centrally and paracentrally to the right. Mild bilateral foraminal encroachment. Mild effacement of thecal sac. No canal stenosis. C7-T1: No evidence for degenerative disc disease. No disc bulge/herniation or protrusion. No Canal stenosis. Foramina are patent bilaterally. Cervical segments are intact. There is normal alignment. Cervical spinal cord is of normal signal. Craniovertebral junction relationships are within normal limits. There is severe scoliotic curvatur e of the cervical thoracic junction IMPRESSION: 1. Multilevel degenerative disc disease most marked at C5-6 and C6-C7. Bilateral foraminal encroachme nt at these levels. There is broad-based central and right paracentral disc bulging at C6-C7 but no c anal stenosis
== END | disposition home or self-care (01) ==
LOC: RADMRIMAIN 07:58
PROVIDERS: ATTEND Family Medicine
DX: M50.323 Other cervical disc degeneration at C6-C7 level (principal)
CPT/HCPCS: 72141

== ENCOUNTER → 2023-06-13 | Outpatient (CLI) | payer MEDICARE ==
--- NOTE | 2023-06-13 14:07 | P.PN ---
Subjective DATE: 06/13/2023 FOLLOW UP VISIT. Patient with obstructive sleep apnea hypopnea syndrome return to sleep center for follow-up visit. Information from previous visit have been reviewed. Patient is using PAP equipment every night for the whole night, getting PAP supplies in time. The patient does not have significant problems with the mask, PAP unit and humidification. [place] sleepiness scale is 6, which is normal. I checked information from PAP unit. PAP unit pressure 10 cm H2O. Usage is 100 % for more then 4 hours, average 8.75 hours per night. Leak is 25.8 l/m, which is in acceptable range. Apnea Hypopnea Index is 1.5, which is normal. MEDICATIONS:1. Metoprolol 50 mg 1-1/2 tablet once a day 2. Allopurinol 300 mg once a day 3. Flomax 0.4 mg once a day 4. Warfarin 5. Losartan/hydrochlorothiazide 25 mg/12.5 mg once a day 6. Amitriptyline 25 mg once a day 7. [] 8. [] During physical exam: GENERAL: A pleasant patient without any distress. VITAL SIGNS: BP 135/78, HR 80, RR 18 , weight 279.6, temperature 98.1, oxygen saturation at room air 95 % . HEENT: PERRLA, EOMI.low position of soft palate, Mallapati 4 . NECK: Supple. No JVD. LUNGS: Clear to percussion and to auscultation. Good air exchange. No wheezing or rhonchi. HEART: S1, S2 regular. ABDOMEN: Soft and nontender. Obese EXTREMITIES: No clubbing or cyanosis. ORNAMENTAL IRON WORKER: Awake, alert, and oriented x3. No focal deficit. Impressions: 1. Obstructive sleep apnea-hypopnea syndrome. Patient demonstrated great compliance with treatment, benefiting from treatment. 2. Obesity, patient increased to wait on 4 pounds comparing with previous visit. 3. Atrial fibrillation. 4. Hypertension. 5. History of asthma. 6. Diabetes mellitus type 2. 7. Gout. 8. Hyperlipidemia. 9. BPH. 10. History of kidney stones, status post surgical treatment. 11. Status post tonsillectomy. 12.[]. Plan: 1. Continue using PAP equipment every night for the whole night. 2. To change air filter at least 1-2 times per month. 3. PAP unit should stay lower then position of the head. 4. Advised patient to remove all remaining water from humidifier canister daily and make it dry after each usage. Refill canister with fresh distilled water before each usage. 5. Sleep hygiene with regular time in bed for at least 8 hours. 6. Precautions related to driving. No driving if feel any sleepiness. 7. I will maintain prescription for PAP supplies including mask, tube, filters. 8. Follow up visit in 6 months or earlier if patient has any problems. 9. Watching and losing weight. Thank you very much for allowing me to participate in the management of your patient. Dima Faustin MD, PhD, FAASM. Diplomat of [employer], Sleep Medicine Board by [employer] Community Nutrition Educator of [facility] [place]
== END ==
LOC: 3 N SLEEP 13:19
PROVIDERS: ATTEND Internal Medicine
DX: G47.33 Obstructive sleep apnea (adult) (pediatric) (principal); E11.9 Type 2 diabetes mellitus without complications; E66.9 Obesity, unspecified; E78.5 Hyperlipidemia, unspecified; I10 Essential (primary) hypertension; I48.91 Unspecified atrial fibrillation; J45.909 Unspecified asthma, uncomplicated; M10.9 Gout, unspecified; N40.0 Benign prostatic hyperplasia without lower urinary tract symptoms; Z79.899 Other long term (current) drug therapy; Z87.442 Personal history of urinary calculi; Z98.890 Other specified postprocedural states; Z99.89 Dependence on other enabling machines and devices; Z79.01 Long term (current) use of anticoagulants; Z88.8 Allergy status to other drugs, medicaments and biological substances; Z87.891 Personal history of nicotine dependence
CPT/HCPCS: 99212

== ENCOUNTER → 2024-01-30 | Outpatient (CLI) | payer MEDICARE ==
[2024-01-30 12:29] VITALS: BP 135/88; PULSE 67; RESP 16; TEMP 97.8
--- NOTE | 2024-01-30 12:32 | P.PN ---
Subjective DATE: 01/30/2024 FOLLOW UP VISIT. Patient with obstructive sleep apnea hypopnea syndrome return to sleep center for follow-up visit. Information from previous visit have been reviewed. Patient is using PAP equipment every night for the whole night, getting PAP supplies in time. The patient does not have significant problems with the mask, PAP unit and humidification. [place] sleepiness scale is 4, which is normal. I checked information from PAP unit. PAP unit pressure 10 cm H2O. Usage is 53% and 47% patient is using in the machine up [place] % for more then 4 hours, average average 8.75 hours per night. Leak is slightly increased to 31.1 l/m. Apnea Hypopnea Index is 4.0, which is normal. MEDICATIONS:1. Metoprolol 50 mg 1.5 tablets once a day 2. Allopurinol 300 mg once a day 3. Tamsulosin 0.4 mg once a day 4. Warfarin 5. Losartan 25 mg once a day 6. Amitriptyline 25 mg once a day During physical exam: GENERAL: A pleasant patient without any distress. VITAL SIGNS: Please see below, weight 272.4 pounds. HEENT: PERRLA, EOMI.low position of soft palate, Mallapati 4 . NECK: Supple. No JVD. LUNGS: Clear to percussion and to auscultation. Good air exchange. No wheezing or rhonchi. HEART: S1, S2 irregular. ABDOMEN: Soft and nontender. Slightly obese EXTREMITIES: No clubbing or cyanosis. SMT OPERATOR: Awake, alert, and oriented x3. No focal deficit. Impressions: 1. Obstructive sleep apnea-hypopnea syndrome. Patient demonstrated great compliance with treatment, benefiting from treatment. 2. Obesity, patient lost 7 pounds comparing with the previous visit. 3. Atrial fibrillation. 4. Hypertension. 5. Diabetes mellitus type 2. 6. Gout. 7. BPH. 8. Hyperlipidemia. 9. History of kidney stones, status post surgical treatment. 10. Status post tonsillectomy. Plan: 1. Continue using PAP equipment every night for the whole night. 2. To change air filter at least 1-2 times per month. 3. PAP unit should stay lower then position of the head. 4. Advised patient to remove all remaining water from humidifier canister daily and make it dry after each usage. Refill canister with fresh distilled water before each usage. 5. Sleep hygiene with regular time in bed for at least 8 hours. 6. Precautions related to driving. No driving if feel any sleepiness. 7. I will maintain prescription for PAP supplies including mask, tube, filters. 8. Follow up visit in 6 months or earlier if patient has any problems. 9. Watching and losing weight. Thank you very much for allowing me to participate in the management of your patient. Dima Faustin MD, PhD, FAASM. Diplomat of [place] [employer], Sleep Medicine Board by [place] [employer] Cold Patcher of [facility] [place] Objective - Vital Signs Vital signs: Vital Signs Temp 97.8 F 01/30/24 11:50 Pulse 67 01/30/24 11:50 Resp 16 01/30/24 11:50 BP 135/88 01/30/24 11:50 Pulse Ox 95 01/30/24 11:50 FiO2
== END ==
LOC: 3 N SLEEP 11:27
PROVIDERS: ATTEND Internal Medicine
DX: G47.33 Obstructive sleep apnea (adult) (pediatric) (principal); E66.9 Obesity, unspecified; I48.91 Unspecified atrial fibrillation; I10 Essential (primary) hypertension; E11.9 Type 2 diabetes mellitus without complications; M10.9 Gout, unspecified; N40.0 Benign prostatic hyperplasia without lower urinary tract symptoms; E78.5 Hyperlipidemia, unspecified; Z87.442 Personal history of urinary calculi; Z79.899 Other long term (current) drug therapy; Z98.890 Other specified postprocedural states; Z90.89 Acquired absence of other organs; Z99.89 Dependence on other enabling machines and devices; Z79.01 Long term (current) use of anticoagulants; Z88.8 Allergy status to other drugs, medicaments and biological substances; Z87.891 Personal history of nicotine dependence
CPT/HCPCS: 99212

== ENCOUNTER → 2024-09-03 | Outpatient (CLI) | payer MEDICARE ==
[2024-09-03 11:24] VITALS: BP 122/75; PULSE 75; RESP 16; TEMP 97.5
--- NOTE | 2024-09-03 11:49 | P.PROGSL ---
Subjective DATE: 09/03/2024 FOLLOW UP VISIT. Patient with obstructive sleep apnea hypopnea syndrome return to sleep center for follow-up visit. Information from previous visit have been reviewed. Patient is using PAP equipment every night for the whole night, getting PAP supplies in time. The patient does not have significant problems with the mask, PAP unit and humidification. [place] sleepiness scale is 6, which is normal. I checked information from PAP unit. PAP unit pressure 10 cm H2O. Usage is 100% for more then 4 hours, average 9.3 hours per night. Leak is 19 l/m, which is in acceptable range. Apnea Hypopnea Index is increased to 9.3, during previous visit with the same pressure it was 4.0. MEDICATIONS have been reviewed, please see below. During physical exam: GENERAL: A pleasant patient without any distress. VITAL SIGNS: Please see below, weight is 258 lbs. HEENT: PERRLA, EOMI.low position of soft palate, Mallapati 4 . NECK: Supple. No JVD. LUNGS: Clear to percussion and to auscultation. Good air exchange. No wheezing or rhonchi. HEART: S1, S2 irregularly irregular. ABDOMEN: Soft and nontender. Obese EXTREMITIES: No clubbing or cyanosis. RADIO OFFICER: Awake, alert, and oriented x3. No focal deficit. Impressions: 1. Obstructive sleep apnea-hypopnea syndrome. Patient demonstrated great compliance with treatment, benefiting from treatment. 2. Obesity, BMI 35.9, patient lost 14 pounds comparing with previous visit. 3. Atrial fibrillation. 4. Hypertension. 5. Gout. 6. BPH. 7. Hyperlipidemia. 8. History of diabetes mellitus in the past, presently normal hemoglobin A1c. 9. Back problems. I changed regimen or of PAP unit to AutoPap with a range of the pressure 7 to 12 cm of water. Plan: 1. Continue using PAP equipment every night for the whole night. 2. Sleep hygiene with regular time in bed for at least 7.5-8 hours 3. PAP unit should stay lower then position of the head. 4. Advised patient to remove all remaining water from humidifier canister daily and make it dry after each usage. Refill canister with fresh distilled water before each usage. 5. Watching and continue losing weight. 6. Precautions related to driving. No driving if feel any sleepiness. 7. I will maintain prescription for PAP supplies including mask, tube, filters. 8. Follow up visit in 8 months or earlier if patient has any problems. Thank you very much for allowing me to participate in the management of your patient. Dima Faustin MD, PhD, FAASM. Diplomat of [employer], Sleep Medicine Board by [employer] Media Sales Representative of [facility] [place] cc: Guillermo Owusu MD Objective - Vital Signs Vital Signs: Vital Signs Temp 97.5 F L 09/03/24 11:22 Pulse 75 09/03/24 11:22 Resp 16 09/03/24 11:22 BP 122/75 09/03/24 11:22 Pulse Ox 96 09/03/24 11:22 FiO2 Intake & Output 09/02/24 09/03/24 09/03/24 18:59 06:59 18:59 Weight 117.027 kg Home Medications: Home Medications Medication Instructions Recorded Confirmed Type allopurinoL [Zyloprim] 300 mg PO DAILY 08/09/15 09/03/24 History Atorvastatin Calcium [Lipitor] 10 mg PO HS 02/20/17 09/03/24 History Tamsulosin [Flomax] 0.4 mg PO HS 02/20/17 09/03/24 History Warfarin [Coumadin] 2.5 mg PO [id number] 02/20/17 05/31/20 History Warfarin [Coumadin] 5 mg PO TH 02/20/17 09/03/24 History Finasteride [Proscar] 5 mg PO DAILY 11/18/19 09/03/24 History Metoprolol Tartrate [Lopressor] 50 mg PO QAM 11/18/19 01/30/24 History Amitriptyline HCl [Elavil] 25 mg PO HS 05/26/20 09/03/24 History Losartan [Cozaar] 25 mg PO DAILY 01/30/24 09/03/24 History Pregabalin [Lyrica Oral Soln] 100 mg PO BID 01/30/24 01/30/24 History
== END ==
LOC: 3 N SLEEP 11:16
PROVIDERS: ATTEND Internal Medicine
DX: G47.33 Obstructive sleep apnea (adult) (pediatric) (principal); E66.9 Obesity, unspecified; I48.91 Unspecified atrial fibrillation; I10 Essential (primary) hypertension; M10.9 Gout, unspecified; N40.0 Benign prostatic hyperplasia without lower urinary tract symptoms; E78.5 Hyperlipidemia, unspecified; M53.9 Dorsopathy, unspecified; Z99.89 Dependence on other enabling machines and devices; Z86.39 Personal history of other endocrine, nutritional and metabolic disease; Z68.35 Body mass index [BMI] 35.0-35.9, adult; Z79.899 Other long term (current) drug therapy; Z79.01 Long term (current) use of anticoagulants; Z88.8 Allergy status to other drugs, medicaments and biological substances; Z87.891 Personal history of nicotine dependence
CPT/HCPCS: 99212